=== PATIENT | male | born 1990 | race Caucasian/White ===

== ENCOUNTER 2021-03-02 10:03 | Emergency (ER) | payer OTHER ==
[2021-03-02 10:27] VITALS: RESP 18; TEMP 98.7
[2021-03-02] MEDS ORDERED: ONDANSETRON ODT 8 MG TAB.RAPDIS PO STA (10:44)
[2021-03-02] MEDS ORDERED: SODIUM CHLORIDE 0.9% 1,000 ML IV STA (10:44)
[2021-03-02] MEDS ORDERED: KETOROLAC 15 MG/ML 1 ML VIAL IVP STA (10:44)
--- NOTE | 2021-03-02 10:49 | ED ---
Abdominal Pain HPI - General Chief Complaint: Abdominal Pain Stated Complaint: vomiting, abd & back pain Time Seen by Provider: 03/02/21 10:32 Source: patient, RN notes reviewed Mode of arrival: wheelchair Limitations: no limitations - History of Present Illness Initial Comments: Patient is a 30-year-old male presents to emergency, complaining of left-sided abdominal pain with some tenderness in his left sided back. He notes that the pain came on last night but he took his cyclobenzaprine and pregabalin and pain with it. He notes that he woke up this morning with increasing pain. He noted that he has been vomiting and nausea all morning. He did appear to be in moderate amounts pain while sitting up in bed during gym interview. He did note that at its best the patient is approximate 7 out of 10 and at the worst is a 10 out of 10. He notes the pain waxes and wanes with intensity. She denied any history of kidney stones or kidney infections. He denied any injury or trauma to his back or abdomen. He denied any other abdominal issues. She denied any chest pain shortness of breath headache diarrhea constipation fever fatigue chills dysuria hematochezia melena or hematemesis. - Related Data Home Medications Medication Instructions Recorded Confirmed Cholecalciferol [Vitamin D3 (25 25 mcg PO DAILY 03/02/21 03/02/21 Mcg = 1000 Iu)] Cyclobenzaprine [Flexeril] 5 mg PO HS PRN 03/02/21 03/02/21 EPINEPHrine (Auto Inject) [Epipen] 0.3 mg IM ONCE PRN 03/02/21 03/02/21 Meloxicam [Mobic] 7.5 mg PO DAILY 03/02/21 03/02/21 Pregabalin [Lyrica] 25 mg PO BID 03/02/21 03/02/21 Previous Rx's Medication Instructions Recorded Fluticasone Propionate [Flonase 1 - 2 spray EA NOSTRIL DAILY 5 01/30/16 Allergy Relief] Days ml Ibuprofen [Motrin] 800 mg PO Q6HR #30 tab 03/02/21 Allergies Allergy/AdvReac Type Severity Reaction Status Date / Time Sulfa (Sulfonamide Allergy Unknown Verified 03/02/21 11:07 Antibiotics) Review of Systems ROS Statement: Those systems with pertinent positive or pertinent negative responses have been documented in the HPI. ROS Other: All systems not noted in ROS Statement are negative. Past Medical History Past Medical History: No Reported History History of Any Multi-Drug Resistant Organisms: None Reported Past Surgical History: Orthopedic Surgery Past Psychological History: No Psychological Hx Reported Smoking Status: Never smoker Past Alcohol Use History: None Reported Past Drug Use History: None Reported General Exam Limitations: no limitations General appearance: alert, in no apparent distress, in distress (Secondary to pain) Head exam: Present: atraumatic, normocephalic, normal inspection Eye exam: Present: normal appearance, PERRL, EOMI. Absent: scleral icterus, conjunctival injection, periorbital swelling Neck exam: Present: normal inspection Respiratory exam: Present: normal lung sounds bilaterally. Absent: respiratory distress, wheezes, rales, rhonchi, stridor Cardiovascular Exam: Present: regular rate, normal rhythm, normal heart sounds. Absent: systolic murmur, diastolic murmur, rubs, gallop, clicks GI/Abdominal exam: Present: soft, tenderness (Point tenderness in the mid left flank.), normal bowel sounds. Absent: distended, guarding, rebound, rigid Extremities exam: Present: normal inspection, full ROM, normal capillary refill. Absent: tenderness, pedal edema, joint swelling, calf tenderness Back exam: Present: normal inspection, CVA tenderness (L) (Mild to moderate palpation) Neurological exam: Present: alert, oriented X3, CN II-XII intact Psychiatric exam: Present: normal affect, normal mood Skin exam: Present: warm, dry, intact, normal color. Absent: rash Course Vital Signs 03/02/21 10:25 Temperature 98.7 F Pulse Rate 88 Respiratory 18 Rate Blood Pressure 125/87 O2 Sat by Pulse 100 Oximetry Medical Decision Making - Medical Decision Making 30-year-old male complaining of left-sided abdominal pain with some radiation to his back. Labs, CT of the abdomen pelvis, 15 mg of Toradol, 4 mg of Zofran, 1 L normal saline ordered Labs: Lactic acid 4.8, patient was given fluids and feels good enough to go home. Rest of labs unremarkable. Computed tomography scan shows to nonobstructing kidney stones and one small obs tructing kidney stone. Case discussed with Dr. Barraza, patient can discharge home with conservative management. - Lab Data Result diagrams: 03/02/21 10:52 06/07/21 10:52 Lab Results 03/02/21 03/02/21 03/02/21 Range/Units 10:52 10:52 10:52 WBC 10.9 H (3.8-10.6) k/uL RBC 5.18 (4.30-5.90) m/uL Hgb 15.3 (13.0-17.5) gm/dL Hct 43.5 (39.0-53.0) % MCV 84.1 (80.0-100.0) fL MCH 29.5 (25.0-35.0) pg MCHC 35.1 (31.0-37.0) g/dL RDW 12.2 (11.5-15.5) % Plt Count 317 (150-450) k/uL MPV 6.8 Neutrophils % 68 % Lymphocytes % 25 % Monocytes % 4 % Eosinophils % 2 % Basophils % 0 % Neutrophils # 7.4 (1.3-7.7) k/uL Lymphocytes # 2.7 (1.0-4.8) k/uL Monocytes # 0.5 (0-1.0) k/uL Eosinophils # 0.2 (0-0.7) k/uL Basophils # 0.0 (0-0.2) k/uL Sodium 139 (137-145) mmol/L Potassium 4.0 (3.5-5.1) mmol/L Chloride 104 (98-107) mmol/L Carbon Dioxide 24 (22-30) mmol/L Anion Gap 11 mmol/L BUN 14 (9-20) mg/dL Creatinine 1.14 (0.66-1.25) mg/dL Est GFR (CKD-EPI)AfAm >90 (>60 ml/min/1.73 sqM) Est GFR (CKD-EPI)NonAf 87 (>60 ml/min/1.73 sqM) Glucose 149 H (74-99) mg/dL Plasma Lactic Acid Twin 4.8 H* (0.7-2.0) mmol/L Calcium 10.0 (8.4-10.2) mg/dL Total Bilirubin 0.7 (0.2-1.3) mg/dL AST 25 (17-59) U/L ALT 18 (4-49) U/L Alkaline Phosphatase 103 (38-126) U/L Total Protein 7.5 (6.3-8.2) g/dL Albumin 4.6 (3.5-5.0) g/dL Amylase 63 (30-110) U/L Lipase 116 (23-300) U/L - Radiology Data Radiology results: report reviewed, image reviewed CT of the abdomen and pelvis: Small bilateral nonobstructing renal calculi. There is a 3 mm proximal left ureteral calculus causing mild to moderate left- sided hydronephrosis. Disposition Clinical Impression: Bilateral nephrolithiasis Disposition: HOME SELF-CARE Condition: Stable Instructions (If sedation given, give patient instructions): Kidney Stones (ED) Additional Instructions: Please return to the Emergency Department if symptoms worsen or any other concerns. Increase oral fluid intake and take Motrin as prescribed. Kidney stone should pass in the next 5-7 days on her own with increase fluids. Follow-up with primary care as needed. Is patient prescribed a controlled substance at d/c from ED?: No Referrals: [facility],Clinic [Primary Care Provider] - 1-2 days Time of Disposition: 12:40
[2021-03-02 11:11] LABS: Basophils % (A) 0 %; Eosinophils # (A) 0.2 k/uL (0-0.7); Eosinophils % (A) 2 %; HCT 43.5 % (39.0-53.0); HGB 15.3 gm/dL (13.0-17.5); Lymphocytes # (A) 2.7 k/uL (1.0-4.8); Lymphocytes % (A) 25 %; MCH 29.5 pg (25.0-35.0); MCHC 35.1 g/dL (31.0-37.0); MCV 84.1 fL (80.0-100.0); Mean Platelet Volume 6.8; Monocytes # (A) 0.5 k/uL (0-1.0); Monocytes % (A) 4 %; Neutrophils # (A) 7.4 k/uL (1.3-7.7); Neutrophils % (A) 68 %; Platelet Count 317 k/uL (150-450); RBC 5.18 m/uL (4.30-5.90); RDW 12.2 % (11.5-15.5); WBC 10.9 k/uL (3.8-10.6)
[2021-03-02 11:39] LABS: ALT 18 U/L (4-49); AST 25 U/L (17-59); African American GFR (CKD) >90 (>60 ml/min/1.73 sqM); Albumin 4.6 g/dL (3.5-5.0); Alkaline Phosphatase 103 U/L (38-126); Amylase 63 U/L (30-110); Anion Gap 11 mmol/L; Blood Urea Nitrogen 14 mg/dL (9-20); Carbon Dioxide 24 mmol/L (22-30); Chloride 104 mmol/L (98-107); Glucose 149 mg/dL (74-99); Lipase 116 U/L (23-300); Non-African American GFR(CKD) 87 (>60 ml/min/1.73 sqM); Sodium 139 mmol/L (137-145); Total Bilirubin 0.7 mg/dL (0.2-1.3); Total Protein 7.5 g/dL (6.3-8.2)
--- NOTE | 2021-03-02 11:45 | CT ---
EXAMINATION TYPE: CT abdomen pelvis wo con DATE OF EXAM: 03/02/2021 HISTORY: Left flank pain, denies history of renal stones CT DLP: 537.4 mGycm. Automated Exposure Control for Dose Reduction was Utilized. TECHNIQUE: CT scan of the abdomen and pelvis is performed without oral or IV contrast. COMPARISON: NONE FINDINGS: Within the limitations of a non-contrast study, the following observations are made. LUNG BASES: No significant abnormality is appreciated. LIVER/GB: No significant abnormality is appreciated. PANCREAS: No significant abnormality is seen. SPLEEN: No significant abnormality is seen. ADRENALS: No significant abnormality is seen. KIDNEYS: Roughly 4 nonobstructing right renal calculi measuring 3 mm or smaller in size. No right-viviane ed hydronephrosis. Single 2 mm nonobstructing left renal calculus upper pole level axial image 24. Ob structing 3 mm calculus proximal left ureter axial image 35 causing mild/moderate left-sided hydronep hrosis. Single right-sided pelvic phlebolith on axial image 79. BOWEL: No significant abnormality is seen. GENITAL ORGANS: No gross abnormality seen. LYMPH NODES: No greater than 1cm abdominal or pelvic lymph nodes are appreciated. OSSEOUS STRUCTURES: No significant abnormality is seen. OTHER: No significant additional abnormality is seen. IMPRESSION: Small bilateral nonobstructing renal calculi. There is 3 mm proximal left ureter calculus causing [id number] left-sided hydronephrosis.
[2021-03-02] MEDS ORDERED: MORPHINE SULFATE 4 MG/ML SYRINGE IVP STA (13:19)
[2021-03-02] MEDS ORDERED: ONDANSETRON 4 MG/2 ML VIAL IVP STA (13:23)
[2021-03-02 13:31] VITALS: BP 120/75; PULSE 100
== END 2021-03-02 13:33 | disposition home or self-care (01) ==
LOC: EC 10:03
DX: N13.2 Hydronephrosis with renal and ureteral calculous obstruction (principal)
CPT/HCPCS: 80053; 82150; 83605; 83690; 85025; 74176; 99284; 96374; 96375 ×2; 96361; J2270; J2405; J1885